=== PATIENT | female | born 1980 | race Caucasian/White ===

== ENCOUNTER 2016-06-14 13:32 | Emergency (ER) | payer MEDICAID ==
[~2016-06-14] VITALS: Ht 165.1 cm; Wt 68.0 kg
[~2016-06-14 13:32] MED LIST: DIP50I IM; DOCU-94 PO; KEP500T PO; LACT10SO PO; LEVE750T15 IV; LORA-205 PO; MAGN400S25 PO; METH1INJ12 IJ; METH40TA13 PO; PANT40T PO; PRED1PAK10 PO; PREG25CA PO
[2016-06-14 14:00] VITALS: BP 113/74
== END 2016-06-14 16:10 | disposition left against medical advice (07) ==
LOC: ER 13:33
DX: R11.2 Nausea with vomiting, unspecified (principal); Z53.21 Procedure and treatment not carried out due to patient leaving prior to being seen by health care provider

== ENCOUNTER 2017-10-12 14:24 | Inpatient (IN) | payer MEDICAID ==
[~2017-10-12] VITALS: Ht 162.6 cm; Wt 77.1 kg
[~2017-10-12 14:24] MED LIST changes: -LACT10SO PO; +LACT10SO3 PO
[2017-10-12 16:56] LABS: Basophils # (auto) 0 uL; Eosinophils # (auto) 0 uL; Hemoglobin 10.5 g/dL (12.2-16.2); Lymphocytes % (auto) 32.8 % (10.0-50.0); Monocytes # (auto) 0.6 uL; Red Cell Distribution Width 17.1 % (11.8-14.3)
[2017-10-12 16:59] LABS: Basophils % (auto) 0.5 % (0.0-2.0); Eosinophils % (auto) 0.2 % (0.0-7.0); Hematocrit 30.6 % (36.0-46.0); Mean Corpuscular Hemoglobin 31.8 pg (28.0-32.0); Mean Corpuscular Hgb Conc. 34.2 g/dL (32.0-36.0); Mean Corpuscular Volume 92.9 fL (80.0-100.0); Monocytes % (auto) 9.4 % (0.0-12.0); Neutrophils # (auto) 3.4 uL; Neutrophils % (auto) 57.1 % (37.0-80.0); Nucleated Red Blood Cells % 0.1 %; Platelet Count (auto) 470 10^3/uL (140-450)
[2017-10-12 17:21] LABS: Albumin 3.9 g/dL (3.4-5.0); Bilirubin, Total 0.3 mg/dL (0.2-1.0); Calcium 9.4 mg/dL (8.5-10.1); Magnesium 2.5 mg/dL (1.6-2.6); Potassium 4.2 mmol/L (3.5-5.1); Total Protein 7.6 g/dL (6.4-8.2)
[2017-10-12] MEDS ORDERED: SODIUM CHLORIDE 0.9% 1,000 ML IVB ONE (17:55)
[2017-10-12] MEDS ORDERED: MORPHINE SULF INJ 2 MG/ML SYRINGE 1ML IV ONE (18:00)
[2017-10-12] MEDS ORDERED: ONDANSETRON HCL 4 MG/2 ML VIAL IV ONE (18:00)
[2017-10-12 18:34] LABS: INR 0.92 (0.9-1.15); Partial Thromboplastin Time 20.7 sec (23.78-33.04); Prothrombin Time 9.9 sec (9.27-12.13)
[2017-10-12] MEDS ORDERED: LEVETIRACETAM 500 MG TAB PO ONE (21:00)
[2017-10-12] MEDS ORDERED: LORazepam 2MG/ML-1ML VIAL IV ONE (21:00)
[2017-10-12] MEDS ORDERED: ACETAMINOPHEN 325 MG TAB PO PRN (21:45)
[2017-10-12] MEDS ORDERED: diphenhdrAMINE HCL 25 MG CAP PO PRN (21:45)
[2017-10-12] MEDS: SODIUM CHLORIDE 0.9% 1,000 ML IV SCH (22:16)
[2017-10-12 23:00] VITALS: BP 106/68
[2017-10-12] MEDS: MORPHINE SULF INJ 2 MG/ML SYRINGE 1ML IV PRN (23:42)
[2017-10-12] MEDS: PREGABALIN 25 MG CAP PO SCH (23:42)
[2017-10-12] MEDS: TEMAZEPAM 15 MG CAP PO PRN (23:43)
[2017-10-13] MEDS: LEVETIRACETAM 500 MG TAB PO SCH ×3 (06:00→22:12)
[2017-10-13] MEDS ORDERED: CLINDAMYCIN 600MG IV 50 ML IV SCH (06:00)
[2017-10-13] MEDS ORDERED: PANTOPRAZOLE 40 MG TAB PO SCH (06:00)
[2017-10-13] MEDS: PREGABALIN 25 MG CAP PO SCH ×3 (06:00→22:12)
[2017-10-13] MEDS ORDERED: PREG100C PO (06:01)
[2017-10-13] MEDS ORDERED: BUSP30TA11 PO (06:02)
[2017-10-13] MEDS ORDERED: TEMA30CA5 PO (06:05)
[2017-10-13 06:48] LABS: Basophils # (auto) 0 uL; Basophils % (auto) 0.9 % (0.0-2.0); Eosinophils # (auto) 0.1 uL; Eosinophils % (auto) 1.9 % (0.0-7.0); Hematocrit 26.2 % (36.0-46.0); Hemoglobin 8.9 g/dL (12.2-16.2); Lymphocytes # (auto) 1.6 uL; Lymphocytes % (auto) 53.5 % (10.0-50.0); Mean Corpuscular Hemoglobin 32.1 pg (28.0-32.0); Mean Corpuscular Hgb Conc. 34.1 g/dL (32.0-36.0); Mean Corpuscular Volume 94.4 fL (80.0-100.0); Monocytes # (auto) 0.3 uL; Monocytes % (auto) 10.2 % (0.0-12.0); Neutrophils % (auto) 33.5 % (37.0-80.0); Nucleated Red Blood Cells % 0.2 %; Platelet Count (auto) 374 10^3/uL (140-450); Red Blood Cells 2.78 10^6/uL (4.0-5.20); Red Cell Distribution Width 17.3 % (11.8-14.3); White Blood Cell 3.1 10^3/uL (4.4-10.8)
[2017-10-13 07:25] LABS: Albumin 3.1 g/dL (3.4-5.0); BUN/Creatinine Ratio 13.8; Bilirubin, Total 0.2 mg/dL (0.2-1.0); Calcium 7.9 mg/dL (8.5-10.1); Potassium 4.5 mmol/L (3.5-5.1); Total Protein 6.2 g/dL (6.4-8.2)
[2017-10-13] MEDS: MORPHINE SULF INJ 2 MG/ML SYRINGE 1ML IV PRN (07:56)
[2017-10-13] MEDS: HYDROcodone-ACET 5/325MG TAB PO PRN ×2 (07:57→11:42)
[2017-10-13] MEDS: HYDROcodone-ACET 10/325MG TAB PO PRN ×4 (08:00→22:13)
[2017-10-13] MEDS ORDERED: MORPHINE SULF INJ 2 MG/ML SYRINGE 1ML IV PRN (08:15)
[2017-10-13 08:19] VITALS: BP 100/58
[2017-10-13] MEDS: LORazepam 0.5 MG TAB PO PRN ×2 (08:56→22:13)
[2017-10-13] MEDS: METHADONE HCL 10 MG TAB PO SCH (09:53)
[2017-10-13] MEDS: predniSONE 5 MG TAB PO SCH (09:53)
[2017-10-13] MEDS ORDERED: diphenhdrAMINE HCL 50 MG/1 ML VL IV ONE (12:45)
[2017-10-13 13:00] VITALS: BP 106/80
[2017-10-13] MEDS ORDERED: HALOPERIDOL LACTATE 5 MG/ML INJ VIAL IM ONE (13:00)
[2017-10-13] MEDS ORDERED: HALOPERIDOL LACTATE 5 MG/ML INJ VIAL IM PRN (13:00)
[2017-10-13] MEDS: LACTULOSE 20Gm/30ML SOLN PO SCH ×3 (14:00→22:12)
[2017-10-13 16:54] VITALS: BP 100/69
[2017-10-13 22:00] VITALS: BP 118/72
[2017-10-13] MEDS ORDERED: METHADONE HCL 10 MG TAB PO ONE (22:00)
[2017-10-13] MEDS: SODIUM CHLORIDE 0.9% 1,000 ML IV SCH (22:11)
[2017-10-13] MEDS: PANTOPRAZOLE 40 MG/10 ML VIAL IV SCH (22:12)
[2017-10-14] MEDS: SODIUM CHLORIDE 0.9% 1,000 ML IV SCH (00:25)
[2017-10-14] MEDS: LACTULOSE 20Gm/30ML SOLN PO SCH ×6 (03:28→22:06)
[2017-10-14] MEDS: TEMAZEPAM 15 MG CAP PO PRN (03:29)
[2017-10-14 05:00] VITALS: BP 101/59
[2017-10-14] MEDS: LEVETIRACETAM 500 MG TAB PO SCH ×3 (06:41→22:07)
[2017-10-14] MEDS: PREGABALIN 25 MG CAP PO SCH ×3 (06:42→22:07)
[2017-10-14] MEDS: LORazepam 0.5 MG TAB PO PRN (09:11)
[2017-10-14] MEDS: HYDROcodone-ACET 10/325MG TAB PO PRN ×2 (09:12→20:08)
[2017-10-14] MEDS: predniSONE 5 MG TAB PO SCH (10:00)
[2017-10-14] MEDS ORDERED: PANT40TA2 PO (10:04)
[2017-10-14] MEDS ORDERED: LORazepam 2MG/ML-1ML VIAL IV ONE (10:15)
[2017-10-14] MEDS: PANTOPRAZOLE 40 MG/10 ML VIAL IV SCH ×2 (11:12→22:06)
[2017-10-14] MEDS: METHADONE HCL 10 MG TAB PO SCH (11:13)
[2017-10-14] MEDS: LORazepam 2MG/ML-1ML VIAL IV PRN (19:54)
[2017-10-14] MEDS: OLANZapine 5 MG TAB PO SCH (22:07)
[2017-10-15] MEDS: TEMAZEPAM 15 MG CAP PO PRN ×2 (01:36→23:20)
[2017-10-15] MEDS: LACTULOSE 20Gm/30ML SOLN PO SCH ×7 (01:45→21:19)
[2017-10-15] MEDS: HYDROcodone-ACET 10/325MG TAB PO PRN ×4 (01:45→20:21)
[2017-10-15] MEDS: LORazepam 2MG/ML-1ML VIAL IV PRN ×4 (02:12→21:20)
[2017-10-15] MEDS: PREGABALIN 25 MG CAP PO SCH ×4 (06:00→21:19)
[2017-10-15] MEDS: LEVETIRACETAM 500 MG TAB PO SCH ×4 (06:00→21:19)
[2017-10-15 09:00] VITALS: BP 109/64
[2017-10-15] MEDS: PANTOPRAZOLE 40 MG/10 ML VIAL IV SCH ×2 (09:16→21:19)
[2017-10-15] MEDS: METHADONE HCL 10 MG TAB PO SCH (09:24)
[2017-10-15] MEDS: OLANZapine 5 MG TAB PO SCH ×2 (09:25→21:20)
[2017-10-15] MEDS: predniSONE 5 MG TAB PO SCH (09:35)
[2017-10-15 13:00] VITALS: BP 98/60
[2017-10-15] MEDS: diphenhdrAMINE HCL 50 MG/1 ML VL IV PRN ×2 (15:11→23:20)
[2017-10-16] MEDS: LACTULOSE 20Gm/30ML SOLN PO SCH ×7 (03:11→22:16)
[2017-10-16] MEDS: HYDROcodone-ACET 10/325MG TAB PO PRN ×4 (04:36→22:15)
[2017-10-16] MEDS: LORazepam 2MG/ML-1ML VIAL IV PRN ×3 (04:37→18:24)
[2017-10-16 05:00] VITALS: BP 115/70
[2017-10-16] MEDS: PREGABALIN 25 MG CAP PO SCH ×4 (05:48→22:16)
[2017-10-16] MEDS: LEVETIRACETAM 500 MG TAB PO SCH ×4 (05:48→22:16)
[2017-10-16] MEDS: predniSONE 5 MG TAB PO SCH (10:20)
[2017-10-16] MEDS: PANTOPRAZOLE 40 MG/10 ML VIAL IV SCH ×2 (10:20→22:16)
[2017-10-16] MEDS: METHADONE HCL 10 MG TAB PO SCH (10:20)
[2017-10-16] MEDS: OLANZapine 5 MG TAB PO SCH ×2 (10:21→22:16)
[2017-10-16] MEDS: diphenhdrAMINE HCL 50 MG/1 ML VL IV PRN ×2 (10:22→18:24)
[2017-10-16] MEDS: Ensure Enlive Chocolate 8oz Bottle PO SCH (18:23)
[2017-10-16 21:30] VITALS: BP 117/62
[2017-10-16] MEDS: TEMAZEPAM 15 MG CAP PO PRN (22:14)
[2017-10-17] MEDS: LACTULOSE 20Gm/30ML SOLN PO SCH ×6 (01:51→21:29)
[2017-10-17] MEDS: LORazepam 2MG/ML-1ML VIAL IV PRN ×3 (02:02→18:11)
[2017-10-17] MEDS: diphenhdrAMINE HCL 50 MG/1 ML VL IV PRN ×3 (02:02→18:11)
[2017-10-17] MEDS: HYDROcodone-ACET 10/325MG TAB PO PRN ×6 (04:25→20:07)
[2017-10-17] MEDS: PREGABALIN 25 MG CAP PO SCH ×3 (05:49→21:29)
[2017-10-17] MEDS: LEVETIRACETAM 500 MG TAB PO SCH ×3 (05:50→21:30)
[2017-10-17 08:11] VITALS: BP 121/73
[2017-10-17] MEDS: Ensure Enlive Chocolate 8oz Bottle PO SCH ×2 (08:29→17:58)
[2017-10-17] MEDS: PANTOPRAZOLE 40 MG/10 ML VIAL IV SCH ×2 (10:02→21:29)
[2017-10-17] MEDS: METHADONE HCL 10 MG TAB PO SCH (10:02)
[2017-10-17] MEDS: predniSONE 5 MG TAB PO SCH (10:02)
[2017-10-17] MEDS: OLANZapine 5 MG TAB PO SCH ×2 (10:02→21:30)
[2017-10-17 12:52] VITALS: BP 104/71
[2017-10-17 17:07] VITALS: BP 109/72
[2017-10-17] MEDS: TEMAZEPAM 15 MG CAP PO PRN (21:31)
[2017-10-18] MEDS: LACTULOSE 20Gm/30ML SOLN PO SCH ×6 (02:16→21:13)
[2017-10-18] MEDS: diphenhdrAMINE HCL 50 MG/1 ML VL IV PRN ×3 (02:16→18:11)
[2017-10-18] MEDS: LORazepam 2MG/ML-1ML VIAL IV PRN ×3 (02:17→18:11)
[2017-10-18] MEDS: HYDROcodone-ACET 10/325MG TAB PO PRN ×5 (03:53→23:04)
[2017-10-18] MEDS: PREGABALIN 25 MG CAP PO SCH ×3 (06:06→21:12)
[2017-10-18] MEDS: LEVETIRACETAM 500 MG TAB PO SCH ×3 (06:06→21:13)
[2017-10-18] MEDS: Ensure Enlive Chocolate 8oz Bottle PO SCH ×2 (08:10→18:16)
[2017-10-18 09:00] VITALS: BP 122/80
[2017-10-18] MEDS: predniSONE 5 MG TAB PO SCH (10:31)
[2017-10-18] MEDS: METHADONE HCL 10 MG TAB PO SCH (10:31)
[2017-10-18] MEDS: OLANZapine 5 MG TAB PO SCH ×2 (10:32→21:24)
[2017-10-18] MEDS: PANTOPRAZOLE 40 MG/10 ML VIAL IV SCH ×2 (10:32→21:13)
[2017-10-18 13:00] VITALS: BP 128/84
[2017-10-18 17:32] VITALS: BP 118/76
[2017-10-18] MEDS: ONDANSETRON HCL 4 MG/2 ML VIAL IV PRN (23:05)
[2017-10-19] MEDS: LACTULOSE 20Gm/30ML SOLN PO SCH ×6 (03:05→21:41)
[2017-10-19 04:35] VITALS: BP 135/74
[2017-10-19] MEDS: HYDROcodone-ACET 10/325MG TAB PO PRN ×5 (04:39→21:40)
[2017-10-19] MEDS: TEMAZEPAM 15 MG CAP PO PRN ×2 (04:42→23:52)
[2017-10-19] MEDS: diphenhdrAMINE HCL 50 MG/1 ML VL IV PRN ×3 (04:43→20:14)
[2017-10-19] MEDS: LORazepam 2MG/ML-1ML VIAL IV PRN ×3 (04:43→20:14)
[2017-10-19] MEDS: PREGABALIN 25 MG CAP PO SCH ×3 (06:50→21:40)
[2017-10-19] MEDS: LEVETIRACETAM 500 MG TAB PO SCH ×3 (06:51→21:40)
[2017-10-19 07:02] VITALS: BP 126/76
[2017-10-19 08:16] VITALS: BP 126/76
[2017-10-19] MEDS: Ensure Enlive Chocolate 8oz Bottle PO SCH ×2 (08:54→18:07)
[2017-10-19] MEDS ORDERED: FUROSEMIDE 20 MG TAB PO ONE (09:45)
[2017-10-19] MEDS: METHADONE HCL 10 MG TAB PO SCH (10:11)
[2017-10-19] MEDS: POTASSIUM CHL 10 Meq TABLET PO SCH (10:11)
[2017-10-19] MEDS: OLANZapine 5 MG TAB PO SCH ×2 (10:13→21:41)
[2017-10-19] MEDS: PANTOPRAZOLE 40 MG/10 ML VIAL IV SCH ×2 (10:13→21:41)
[2017-10-19] MEDS: predniSONE 5 MG TAB PO SCH (10:13)
[2017-10-19 11:25] VITALS: BP 157/88
[2017-10-19 17:00] VITALS: BP 143/102
[2017-10-19 21:30] VITALS: BP 130/94
[2017-10-20] MEDS: LACTULOSE 20Gm/30ML SOLN PO SCH ×6 (02:17→22:42)
[2017-10-20] MEDS: LORazepam 2MG/ML-1ML VIAL IV PRN ×4 (03:44→22:44)
[2017-10-20] MEDS: diphenhdrAMINE HCL 50 MG/1 ML VL IV PRN ×3 (03:44→16:25)
[2017-10-20 04:41] VITALS: BP 130/69
[2017-10-20] MEDS: PREGABALIN 25 MG CAP PO SCH ×3 (06:06→22:43)
[2017-10-20] MEDS: HYDROcodone-ACET 10/325MG TAB PO PRN ×3 (06:06→21:40)
[2017-10-20] MEDS: LEVETIRACETAM 500 MG TAB PO SCH ×3 (06:06→22:43)
[2017-10-20 08:00] VITALS: BP 151/79
[2017-10-20 08:51] VITALS: BP 151/79
[2017-10-20] MEDS: predniSONE 5 MG TAB PO SCH (10:09)
[2017-10-20] MEDS: POTASSIUM CHL 10 Meq TABLET PO SCH (10:09)
[2017-10-20] MEDS: METHADONE HCL 10 MG TAB PO SCH (10:09)
[2017-10-20] MEDS: OLANZapine 5 MG TAB PO SCH ×2 (10:10→22:43)
[2017-10-20] MEDS: PANTOPRAZOLE 40 MG/10 ML VIAL IV SCH ×2 (10:10→22:42)
[2017-10-20] MEDS: Ensure Enlive Chocolate 8oz Bottle PO SCH ×2 (10:16→18:44)
[2017-10-20] MEDS ORDERED: FUROSEMIDE 40 MG/4 ML VIAL IV ONE (12:30)
[2017-10-20 22:00] VITALS: BP 138/66
[2017-10-21] MEDS: TEMAZEPAM 15 MG CAP PO PRN ×2 (01:07→22:09)
[2017-10-21] MEDS: diphenhdrAMINE HCL 50 MG/1 ML VL IV PRN ×3 (01:08→18:13)
[2017-10-21] MEDS: LACTULOSE 20Gm/30ML SOLN PO SCH ×6 (02:00→22:08)
[2017-10-21] MEDS: HYDROcodone-ACET 10/325MG TAB PO PRN ×4 (02:22→19:39)
[2017-10-21 05:26] VITALS: BP 134/80
[2017-10-21] MEDS: PREGABALIN 25 MG CAP PO SCH ×3 (06:00→22:09)
[2017-10-21 06:43] LABS: BUN/Creatinine Ratio 18.6; Calcium 8.4 mg/dL (8.5-10.1); Potassium 4.2 mmol/L (3.5-5.1)
[2017-10-21 06:55] LABS: INR 0.89 (0.9-1.15); Partial Thromboplastin Time 23.8 sec (23.78-33.04); Prothrombin Time 9.6 sec (9.27-12.13)
[2017-10-21] MEDS: LEVETIRACETAM 500 MG TAB PO SCH ×3 (07:00→22:09)
[2017-10-21 07:01] LABS: Basophils # (auto) 0 uL; Basophils % (auto) 0.6 % (0.0-2.0); Eosinophils # (auto) 0.1 uL; Eosinophils % (auto) 2.2 % (0.0-7.0); Hematocrit 24.1 % (36.0-46.0); Hemoglobin 8.5 g/dL (12.2-16.2); Lymphocytes # (auto) 2.1 uL; Lymphocytes % (auto) 35.2 % (10.0-50.0); Mean Corpuscular Hemoglobin 33.8 pg (28.0-32.0); Mean Corpuscular Hgb Conc. 35.1 g/dL (32.0-36.0); Mean Corpuscular Volume 96.3 fL (80.0-100.0); Monocytes # (auto) 0.8 uL; Monocytes % (auto) 13.6 % (0.0-12.0); Neutrophils # (auto) 2.9 uL; Neutrophils % (auto) 48.4 % (37.0-80.0); Nucleated Red Blood Cells % 0.2 %; Platelet Count (auto) 277 10^3/uL (140-450); Red Blood Cells 2.51 10^6/uL (4.0-5.20); Red Cell Distribution Width 17.1 % (11.8-14.3); White Blood Cell 5.9 10^3/uL (4.4-10.8)
[2017-10-21] MEDS: Ensure Enlive Chocolate 8oz Bottle PO SCH ×2 (08:00→18:12)
[2017-10-21 08:55] VITALS: BP 133/85
[2017-10-21] MEDS: PANTOPRAZOLE 40 MG/10 ML VIAL IV SCH ×2 (09:46→22:08)
[2017-10-21] MEDS: METHADONE HCL 10 MG TAB PO SCH (09:46)
[2017-10-21] MEDS: predniSONE 5 MG TAB PO SCH (09:46)
[2017-10-21] MEDS: POTASSIUM CHL 10 Meq TABLET PO SCH (09:46)
[2017-10-21] MEDS: LORazepam 2MG/ML-1ML VIAL IV PRN ×2 (09:47→18:13)
[2017-10-21] MEDS: OLANZapine 5 MG TAB PO SCH ×2 (09:47→22:10)
[2017-10-21] MEDS ORDERED: MIDAZOLAM HCL 1MG/1ML-2 ML VIAL ONE (11:59)
[2017-10-21] MEDS ORDERED: PROPOFOL 10 MG/ML 20 ML IV ONE (12:00)
[2017-10-21] MEDS ORDERED: fentaNYL CITRATE 100 MCG/2 ML VL ONE (12:02)
[2017-10-21] MEDS ORDERED: NALOXONE HCL 0.4 MG/ML VIAL IV PRN (12:30)
[2017-10-21 13:20] VITALS: BP 120/90
[2017-10-21 16:52] VITALS: BP 136/91
[2017-10-21] MEDS ORDERED: MILK OF MAGNESIA 30ML SUSP PO ONE (21:15)
[2017-10-22] MEDS: LACTULOSE 20Gm/30ML SOLN PO SCH ×6 (02:29→21:56)
[2017-10-22] MEDS: diphenhdrAMINE HCL 50 MG/1 ML VL IV PRN ×3 (02:30→20:27)
[2017-10-22] MEDS: LORazepam 2MG/ML-1ML VIAL IV PRN ×3 (02:30→20:27)
[2017-10-22] MEDS: LEVETIRACETAM 500 MG TAB PO SCH ×3 (06:05→21:59)
[2017-10-22] MEDS: PREGABALIN 25 MG CAP PO SCH ×3 (06:05→21:57)
[2017-10-22] MEDS: HYDROcodone-ACET 10/325MG TAB PO PRN ×4 (06:10→23:22)
[2017-10-22] MEDS ORDERED: HYDROcodone-ACET 10/325MG TAB PO PRN (07:00)
[2017-10-22] MEDS ORDERED: LORazepam 2MG/ML-1ML VIAL IV PRN (07:00)
[2017-10-22] MEDS: Ensure Enlive Chocolate 8oz Bottle PO SCH ×2 (08:15→18:39)
[2017-10-22 08:43] LABS: BUN/Creatinine Ratio 17.2; Calcium 8.6 mg/dL (8.5-10.1); Potassium 4.4 mmol/L (3.5-5.1)
[2017-10-22] MEDS: predniSONE 5 MG TAB PO SCH (09:42)
[2017-10-22] MEDS: POTASSIUM CHL 10 Meq TABLET PO SCH (09:42)
[2017-10-22] MEDS: PANTOPRAZOLE 40 MG/10 ML VIAL IV SCH ×2 (09:42→22:00)
[2017-10-22] MEDS: OLANZapine 5 MG TAB PO SCH ×2 (09:43→21:58)
[2017-10-22] MEDS: METHADONE HCL 10 MG TAB PO SCH (09:43)
[2017-10-22] MEDS ORDERED: METHADONE HCL 10 MG TAB PO SCH (10:00)
[2017-10-22] MEDS ORDERED: fentaNYL CITRATE 100 MCG/2 ML VL IV ONE (10:00)
[2017-10-22 13:46] VITALS: BP 135/95
[2017-10-22] MEDS ORDERED: PREGABALIN 25 MG CAP PO SCH (14:00)
[2017-10-22 21:48] VITALS: BP 145/93
[2017-10-22] MEDS: TEMAZEPAM 15 MG CAP PO PRN (22:26)
[2017-10-23] MEDS: LACTULOSE 20Gm/30ML SOLN PO SCH ×6 (02:30→21:16)
[2017-10-23] MEDS: diphenhdrAMINE HCL 50 MG/1 ML VL IV PRN ×3 (04:31→20:02)
[2017-10-23] MEDS: LORazepam 2MG/ML-1ML VIAL IV PRN ×3 (04:31→20:01)
[2017-10-23] MEDS: HYDROcodone-ACET 10/325MG TAB PO PRN ×4 (04:40→21:16)
[2017-10-23 06:02] LABS: Basophils # (auto) 0 uL; Eosinophils # (auto) 0.1 uL; Hemoglobin 8.4 g/dL (12.2-16.2); Monocytes # (auto) 0.8 uL; Neutrophils # (auto) 4.8 uL; Neutrophils % (auto) 63.4 % (37.0-80.0); Nucleated Red Blood Cells % 0.1 %; White Blood Cell 7.6 10^3/uL (4.4-10.8)
[2017-10-23 06:05] LABS: Basophils % (auto) 0.3 % (0.0-2.0); Eosinophils % (auto) 1.4 % (0.0-7.0); Hematocrit 24.6 % (36.0-46.0); Lymphocytes # (auto) 1.9 uL; Mean Corpuscular Hemoglobin 32.9 pg (28.0-32.0); Mean Corpuscular Hgb Conc. 34.3 g/dL (32.0-36.0); Mean Corpuscular Volume 95.9 fL (80.0-100.0); Monocytes % (auto) 9.9 % (0.0-12.0); Platelet Count (auto) 249 10^3/uL (140-450); Red Blood Cells 2.56 10^6/uL (4.0-5.20); Red Cell Distribution Width 16.6 % (11.8-14.3)
[2017-10-23] MEDS: PREGABALIN 25 MG CAP PO SCH ×3 (06:22→21:14)
[2017-10-23] MEDS: LEVETIRACETAM 500 MG TAB PO SCH ×3 (06:22→21:16)
[2017-10-23 06:41] LABS: Albumin 3.2 g/dL (3.4-5.0); BUN/Creatinine Ratio 21.6; Bilirubin, Total 0.2 mg/dL (0.2-1.0); Calcium 8.1 mg/dL (8.5-10.1); Potassium 4.1 mmol/L (3.5-5.1)
[2017-10-23] MEDS: Ensure Enlive Chocolate 8oz Bottle PO SCH ×2 (08:00→18:00)
[2017-10-23] MEDS ORDERED: MILK OF MAGNESIA 30ML SUSP PO ONE (11:00)
[2017-10-23] MEDS: POTASSIUM CHL 10 Meq TABLET PO SCH (12:00)
[2017-10-23] MEDS: predniSONE 5 MG TAB PO SCH (12:00)
[2017-10-23] MEDS: METHADONE HCL 10 MG TAB PO SCH (12:00)
[2017-10-23] MEDS: PANTOPRAZOLE 40 MG/10 ML VIAL IV SCH ×2 (12:00→21:17)
[2017-10-23] MEDS: OLANZapine 5 MG TAB PO SCH ×2 (12:04→21:15)
[2017-10-23] MEDS ORDERED: ALPR0.254 PO (15:08)
[2017-10-23] MEDS: TEMAZEPAM 15 MG CAP PO PRN (21:36)
[2017-10-23] MEDS: ONDANSETRON HCL 4 MG/2 ML VIAL IV PRN (23:24)
[2017-10-24] MEDS: LACTULOSE 20Gm/30ML SOLN PO SCH ×7 (01:52→20:42)
[2017-10-24] MEDS: HYDROcodone-ACET 10/325MG TAB PO PRN ×4 (04:03→20:35)
[2017-10-24] MEDS: LORazepam 2MG/ML-1ML VIAL IV PRN ×3 (04:03→20:49)
[2017-10-24] MEDS: diphenhdrAMINE HCL 50 MG/1 ML VL IV PRN ×3 (04:03→20:49)
[2017-10-24 04:43] LABS: Basophils # (auto) 0 uL; Basophils % (auto) 0.4 % (0.0-2.0); Eosinophils # (auto) 0.1 uL; Eosinophils % (auto) 2.1 % (0.0-7.0); Hematocrit 25.1 % (36.0-46.0); Hemoglobin 8.7 g/dL (12.2-16.2); Lymphocytes % (auto) 29.4 % (10.0-50.0); Mean Corpuscular Hemoglobin 33.4 pg (28.0-32.0); Mean Corpuscular Hgb Conc. 34.6 g/dL (32.0-36.0); Mean Corpuscular Volume 96.5 fL (80.0-100.0); Monocytes # (auto) 0.9 uL; Monocytes % (auto) 12.9 % (0.0-12.0); Neutrophils # (auto) 3.8 uL; Neutrophils % (auto) 55.2 % (37.0-80.0); Nucleated Red Blood Cells % 0.1 %; Platelet Count (auto) 272 10^3/uL (140-450); Red Cell Distribution Width 16.5 % (11.8-14.3); White Blood Cell 6.9 10^3/uL (4.4-10.8)
[2017-10-24 04:53] LABS: BUN/Creatinine Ratio 19.4; Calcium 8.1 mg/dL (8.5-10.1)
[2017-10-24] MEDS: PREGABALIN 25 MG CAP PO SCH ×4 (06:52→20:42)
[2017-10-24] MEDS: LEVETIRACETAM 500 MG TAB PO SCH ×4 (06:54→20:42)
[2017-10-24] MEDS: Ensure Enlive Chocolate 8oz Bottle PO SCH ×2 (08:44→19:15)
[2017-10-24] MEDS: predniSONE 5 MG TAB PO SCH (10:07)
[2017-10-24] MEDS: METHADONE HCL 10 MG TAB PO SCH (10:07)
[2017-10-24] MEDS: PANTOPRAZOLE 40 MG/10 ML VIAL IV SCH ×2 (10:07→20:50)
[2017-10-24] MEDS: POTASSIUM CHL 10 Meq TABLET PO SCH (10:07)
[2017-10-24] MEDS: OLANZapine 5 MG TAB PO SCH ×2 (10:08→20:35)
[2017-10-24] MEDS: ONDANSETRON HCL 4 MG/2 ML VIAL IV PRN (18:38)
[2017-10-24] MEDS: TEMAZEPAM 15 MG CAP PO PRN (20:35)
[2017-10-24 22:00] VITALS: BP 149/90
[2017-10-25] MEDS: HYDROcodone-ACET 10/325MG TAB PO PRN ×5 (01:23→22:00)
[2017-10-25] MEDS: LACTULOSE 20Gm/30ML SOLN PO SCH ×6 (01:23→21:58)
[2017-10-25] MEDS: LORazepam 2MG/ML-1ML VIAL IV PRN ×3 (04:46→22:19)
[2017-10-25] MEDS: diphenhdrAMINE HCL 50 MG/1 ML VL IV PRN ×3 (04:47→22:19)
[2017-10-25] MEDS: PREGABALIN 25 MG CAP PO SCH ×3 (05:22→21:58)
[2017-10-25] MEDS: LEVETIRACETAM 500 MG TAB PO SCH ×3 (05:23→22:00)
[2017-10-25 06:04] LABS: BUN/Creatinine Ratio 18.2; Potassium 4.4 mmol/L (3.5-5.1)
[2017-10-25 06:05] LABS: Basophils # (auto) 0 uL; Basophils % (auto) 0.4 % (0.0-2.0); Lymphocytes # (auto) 2.1 uL; Monocytes # (auto) 0.7 uL
[2017-10-25 06:08] LABS: Eosinophils # (auto) 0.1 uL; Eosinophils % (auto) 2.4 % (0.0-7.0); Hematocrit 23.6 % (36.0-46.0); Lymphocytes % (auto) 39.9 % (10.0-50.0); Mean Corpuscular Hemoglobin 32.7 pg (28.0-32.0); Mean Corpuscular Hgb Conc. 34.1 g/dL (32.0-36.0); Mean Corpuscular Volume 95.9 fL (80.0-100.0); Monocytes % (auto) 13.3 % (0.0-12.0); Neutrophils # (auto) 2.3 uL; Nucleated Red Blood Cells % 0.1 %; Platelet Count (auto) 274 10^3/uL (140-450); Red Blood Cells 2.46 10^6/uL (4.0-5.20); Red Cell Distribution Width 16.8 % (11.8-14.3); White Blood Cell 5.2 10^3/uL (4.4-10.8)
[2017-10-25] MEDS: Ensure Enlive Chocolate 8oz Bottle PO SCH ×2 (08:00→17:08)
[2017-10-25] MEDS: METHADONE HCL 10 MG TAB PO SCH (10:26)
[2017-10-25] MEDS: PANTOPRAZOLE 40 MG/10 ML VIAL IV SCH ×2 (11:26→22:01)
[2017-10-25] MEDS: OLANZapine 5 MG TAB PO SCH ×2 (11:26→22:01)
[2017-10-25] MEDS: predniSONE 5 MG TAB PO SCH (11:26)
[2017-10-25] MEDS: POTASSIUM CHL 10 Meq TABLET PO SCH (11:27)
[2017-10-25] MEDS: SODIUM CHLORIDE 1 GM TAB PO SCH (11:27)
[2017-10-25 21:59] VITALS: BP 133/80
[2017-10-26] MEDS: SODIUM CHLORIDE 1 GM TAB PO SCH ×3 (00:22→21:02)
[2017-10-26] MEDS: TEMAZEPAM 15 MG CAP PO PRN (00:22)
[2017-10-26] MEDS: LACTULOSE 20Gm/30ML SOLN PO SCH ×6 (02:43→21:03)
[2017-10-26] MEDS: HYDROcodone-ACET 10/325MG TAB PO PRN ×4 (04:14→21:00)
[2017-10-26] MEDS: LEVETIRACETAM 500 MG TAB PO SCH ×3 (06:05→21:01)
[2017-10-26] MEDS: LORazepam 2MG/ML-1ML VIAL IV PRN ×3 (06:06→22:11)
[2017-10-26] MEDS: PREGABALIN 25 MG CAP PO SCH ×3 (06:06→21:02)
[2017-10-26] MEDS: diphenhdrAMINE HCL 50 MG/1 ML VL IV PRN ×3 (06:06→22:11)
[2017-10-26 06:49] LABS: Basophils # (auto) 0 uL; Basophils % (auto) 0.3 % (0.0-2.0); Eosinophils # (auto) 0.1 uL; Eosinophils % (auto) 2.1 % (0.0-7.0); Hematocrit 24.4 % (36.0-46.0); Hemoglobin 8.3 g/dL (12.2-16.2); Lymphocytes % (auto) 31.7 % (10.0-50.0); Mean Corpuscular Hemoglobin 33.2 pg (28.0-32.0); Mean Corpuscular Hgb Conc. 34.2 g/dL (32.0-36.0); Mean Corpuscular Volume 97.1 fL (80.0-100.0); Monocytes # (auto) 0.6 uL; Monocytes % (auto) 9.3 % (0.0-12.0); Neutrophils # (auto) 3.6 uL; Neutrophils % (auto) 56.6 % (37.0-80.0); Nucleated Red Blood Cells % 0.1 %; Platelet Count (auto) 308 10^3/uL (140-450); Red Blood Cells 2.52 10^6/uL (4.0-5.20); Red Cell Distribution Width 16.7 % (11.8-14.3); White Blood Cell 6.4 10^3/uL (4.4-10.8)
[2017-10-26 07:14] LABS: BUN/Creatinine Ratio 13.3; Calcium 8.1 mg/dL (8.5-10.1); Potassium 3.9 mmol/L (3.5-5.1)
[2017-10-26] MEDS: Ensure Enlive Chocolate 8oz Bottle PO SCH ×2 (08:00→18:00)
[2017-10-26] MEDS: OLANZapine 5 MG TAB PO SCH ×2 (10:00→21:02)
[2017-10-26] MEDS: PANTOPRAZOLE 40 MG/10 ML VIAL IV SCH ×2 (10:00→22:11)
[2017-10-26] MEDS: predniSONE 5 MG TAB PO SCH (10:00)
[2017-10-26] MEDS: POTASSIUM CHL 10 Meq TABLET PO SCH (10:00)
[2017-10-26] MEDS: METHADONE HCL 10 MG TAB PO SCH (10:00)
[2017-10-26] MEDS: ONDANSETRON HCL 4 MG/2 ML VIAL IV PRN (16:31)
[2017-10-27] MEDS: TEMAZEPAM 15 MG CAP PO PRN (00:21)
[2017-10-27] MEDS: HYDROcodone-ACET 10/325MG TAB PO PRN ×6 (00:21→22:52)
[2017-10-27] MEDS: LACTULOSE 20Gm/30ML SOLN PO SCH ×6 (01:09→21:49)
[2017-10-27] MEDS: PREGABALIN 25 MG CAP PO SCH ×3 (06:29→21:50)
[2017-10-27] MEDS: LORazepam 2MG/ML-1ML VIAL IV PRN ×3 (06:29→21:50)
[2017-10-27] MEDS: LEVETIRACETAM 500 MG TAB PO SCH ×3 (06:29→21:50)
[2017-10-27] MEDS: diphenhdrAMINE HCL 50 MG/1 ML VL IV PRN ×3 (06:29→21:50)
[2017-10-27] MEDS: Ensure Enlive Chocolate 8oz Bottle PO SCH ×2 (08:00→18:00)
[2017-10-27 08:09] LABS: Basophils # (auto) 0 uL; Basophils % (auto) 0.7 % (0.0-2.0); Eosinophils # (auto) 0.2 uL; Eosinophils % (auto) 3.1 % (0.0-7.0); Hematocrit 25.5 % (36.0-46.0); Hemoglobin 8.5 g/dL (12.2-16.2); Lymphocytes # (auto) 2.5 uL; Mean Corpuscular Hemoglobin 32.4 pg (28.0-32.0); Mean Corpuscular Hgb Conc. 33.5 g/dL (32.0-36.0); Mean Corpuscular Volume 96.8 fL (80.0-100.0); Monocytes # (auto) 0.6 uL; Neutrophils # (auto) 2.3 uL; Neutrophils % (auto) 41.2 % (37.0-80.0); Nucleated Red Blood Cells % 0.1 %; Platelet Count (auto) 332 10^3/uL (140-450); Red Blood Cells 2.63 10^6/uL (4.0-5.20); Red Cell Distribution Width 16.6 % (11.8-14.3); White Blood Cell 5.6 10^3/uL (4.4-10.8)
[2017-10-27 08:25] LABS: BUN/Creatinine Ratio 17.2
[2017-10-27] MEDS: predniSONE 5 MG TAB PO SCH (10:00)
[2017-10-27] MEDS: METHADONE HCL 10 MG TAB PO SCH (10:00)
[2017-10-27] MEDS: OLANZapine 5 MG TAB PO SCH ×2 (10:00→21:49)
[2017-10-27] MEDS: SODIUM CHLORIDE 1 GM TAB PO SCH ×2 (10:00→21:49)
[2017-10-27] MEDS: POTASSIUM CHL 10 Meq TABLET PO SCH (10:00)
[2017-10-27] MEDS: PANTOPRAZOLE 40 MG/10 ML VIAL IV SCH ×2 (10:00→21:49)
[2017-10-27 17:00] VITALS: BP 143/87
[2017-10-28] MEDS: TEMAZEPAM 15 MG CAP PO PRN ×2 (00:41→23:28)
[2017-10-28] MEDS: LACTULOSE 20Gm/30ML SOLN PO SCH ×6 (01:17→21:26)
[2017-10-28] MEDS: HYDROcodone-ACET 10/325MG TAB PO PRN ×6 (03:00→23:28)
[2017-10-28] MEDS: PREGABALIN 25 MG CAP PO SCH ×3 (05:39→21:27)
[2017-10-28] MEDS: LEVETIRACETAM 500 MG TAB PO SCH ×3 (05:39→21:27)
[2017-10-28] MEDS: diphenhdrAMINE HCL 50 MG/1 ML VL IV PRN ×3 (05:40→21:27)
[2017-10-28] MEDS: LORazepam 2MG/ML-1ML VIAL IV PRN ×3 (05:40→21:27)
[2017-10-28 07:34] VITALS: BP 135/101
[2017-10-28] MEDS: Ensure Enlive Chocolate 8oz Bottle PO SCH ×2 (08:00→18:00)
[2017-10-28] MEDS: OLANZapine 5 MG TAB PO SCH ×2 (10:00→21:26)
[2017-10-28] MEDS: POTASSIUM CHL 10 Meq TABLET PO SCH (10:00)
[2017-10-28] MEDS: SODIUM CHLORIDE 1 GM TAB PO SCH ×2 (10:00→21:26)
[2017-10-28] MEDS: PANTOPRAZOLE 40 MG/10 ML VIAL IV SCH ×2 (10:00→21:26)
[2017-10-28] MEDS: METHADONE HCL 10 MG TAB PO SCH (10:00)
[2017-10-28] MEDS: predniSONE 5 MG TAB PO SCH (10:00)
[2017-10-28 12:56] VITALS: BP 136/92
[2017-10-28 17:00] VITALS: BP 132/90
[2017-10-28 21:40] LABS: Urine WBC None Seen /hpf (0 - 5)
[2017-10-28 21:51] LABS: Urine Bacteria NONE SEEN /hpf (None Seen); Urine Blood Negative /uL (Negative); Urine Specific Gravity 1.001 (1.001-1.035)
[2017-10-28 22:09] LABS: Protein, Urine < 5.0 mg/dL (0.0-11.9); Sodium Urine 27 mmol/L (40-220)
[2017-10-28 23:52] LABS: Creatinine, Urine < 0.1 mg/dL (30.0-125.0)
[2017-10-29] MEDS: LACTULOSE 20Gm/30ML SOLN PO SCH ×6 (02:26→22:54)
[2017-10-29] MEDS: HYDROcodone-ACET 10/325MG TAB PO PRN ×3 (03:25→16:28)
[2017-10-29] MEDS: LEVETIRACETAM 500 MG TAB PO SCH ×2 (05:26→14:21)
[2017-10-29] MEDS: LORazepam 2MG/ML-1ML VIAL IV PRN ×4 (05:27→21:52)
[2017-10-29] MEDS: diphenhdrAMINE HCL 50 MG/1 ML VL IV PRN ×3 (05:27→21:56)
[2017-10-29] MEDS: PREGABALIN 25 MG CAP PO SCH ×3 (05:27→21:56)
[2017-10-29] MEDS: Ensure Enlive Chocolate 8oz Bottle PO SCH (08:00)
[2017-10-29 09:24] VITALS: BP 147/103
[2017-10-29] MEDS: POTASSIUM CHL 10 Meq TABLET PO SCH (09:56)
[2017-10-29] MEDS: METHADONE HCL 10 MG TAB PO SCH ×2 (09:56→23:47)
[2017-10-29] MEDS: PANTOPRAZOLE 40 MG/10 ML VIAL IV SCH ×2 (09:57→21:52)
[2017-10-29] MEDS: predniSONE 5 MG TAB PO SCH (09:57)
[2017-10-29] MEDS: OLANZapine 5 MG TAB PO SCH ×2 (09:57→21:56)
[2017-10-29] MEDS: SODIUM CHLORIDE 1 GM TAB PO SCH ×2 (09:57→22:34)
[2017-10-29 10:58] LABS: Basophils # (auto) 0 uL; Basophils % (auto) 0.7 % (0.0-2.0); Eosinophils # (auto) 0.1 uL; Hematocrit 27.4 % (36.0-46.0); Hemoglobin 9.1 g/dL (12.2-16.2); Lymphocytes # (auto) 2.6 uL; Lymphocytes % (auto) 45.4 % (10.0-50.0); Mean Corpuscular Hgb Conc. 33.4 g/dL (32.0-36.0); Mean Corpuscular Volume 95.8 fL (80.0-100.0); Monocytes # (auto) 0.6 uL; Monocytes % (auto) 10.4 % (0.0-12.0); Neutrophils # (auto) 2.4 uL; Neutrophils % (auto) 41.5 % (37.0-80.0); Nucleated Red Blood Cells % 0.1 %; Platelet Count (auto) 383 10^3/uL (140-450); Red Blood Cells 2.86 10^6/uL (4.0-5.20); Red Cell Distribution Width 16.4 % (11.8-14.3); White Blood Cell 5.8 10^3/uL (4.4-10.8)
[2017-10-29 11:38] LABS: BUN/Creatinine Ratio 10.2; Calcium 8.3 mg/dL (8.5-10.1); Phosphorus 3.4 mg/dL (2.5-4.90); Potassium 4.1 mmol/L (3.5-5.1); Uric Acid 3.5 mg/dL (2.6-6.0)
[2017-10-29 13:24] VITALS: BP 141/99
[2017-10-29] MEDS ORDERED: METHADONE HCL 10 MG TAB PO ONE (16:15)
[2017-10-29] MEDS: ONDANSETRON HCL 4 MG/2 ML VIAL IV PRN (16:38)
[2017-10-29 17:14] VITALS: BP 147/97
[2017-10-29 21:47] VITALS: BP 132/92
[2017-10-29] MEDS: LEVETIRACETAM 500 MG/5ML ORAL SOLN UD PO SCH (22:35)
[2017-10-29] MEDS: TEMAZEPAM 15 MG CAP PO PRN (22:48)
[2017-10-30] MEDS: LACTULOSE 20Gm/30ML SOLN PO SCH ×4 (02:32→14:07)
[2017-10-30] MEDS: HYDROcodone-ACET 10/325MG TAB PO PRN ×3 (02:35→17:52)
[2017-10-30 05:40] VITALS: BP 136/90
[2017-10-30] MEDS: diphenhdrAMINE HCL 50 MG/1 ML VL IV PRN ×2 (06:05→14:07)
[2017-10-30] MEDS: LORazepam 2MG/ML-1ML VIAL IV PRN ×4 (06:11→21:40)
[2017-10-30] MEDS: PREGABALIN 25 MG CAP PO SCH ×3 (06:12→21:32)
[2017-10-30] MEDS: LEVETIRACETAM 500 MG/5ML ORAL SOLN UD PO SCH ×3 (06:12→21:50)
[2017-10-30] MEDS: Ensure Enlive Chocolate 8oz Bottle PO SCH ×2 (08:00→18:00)
[2017-10-30 08:30] VITALS: BP 147/98
[2017-10-30] MEDS ORDERED: METHADONE HCL 10 MG TAB PO SCH (10:00)
[2017-10-30] MEDS: predniSONE 5 MG TAB PO SCH (10:10)
[2017-10-30] MEDS: METHADONE HCL 10 MG TAB PO SCH ×2 (10:10→21:31)
[2017-10-30] MEDS: POTASSIUM CHL 10 Meq TABLET PO SCH (10:10)
[2017-10-30] MEDS: OLANZapine 5 MG TAB PO SCH ×2 (10:10→21:31)
[2017-10-30] MEDS: SODIUM CHLORIDE 1 GM TAB PO SCH ×2 (10:10→21:32)
[2017-10-30] MEDS: PANTOPRAZOLE 40 MG/10 ML VIAL IV SCH (10:16)
[2017-10-30] MEDS: ONDANSETRON HCL 4 MG/2 ML VIAL IV PRN (12:03)
[2017-10-30 13:00] VITALS: BP 151/89
[2017-10-30 13:37] LABS: Basophils # (auto) 0 uL; Basophils % (auto) 0.4 % (0.0-2.0); Eosinophils # (auto) 0.1 uL; Eosinophils % (auto) 1.4 % (0.0-7.0); Hematocrit 26.9 % (36.0-46.0); Hemoglobin 9.1 g/dL (12.2-16.2); Lymphocytes # (auto) 1.4 uL; Lymphocytes % (auto) 18.4 % (10.0-50.0); Mean Corpuscular Hemoglobin 32.8 pg (28.0-32.0); Mean Corpuscular Volume 96.6 fL (80.0-100.0); Monocytes # (auto) 0.4 uL; Neutrophils # (auto) 5.6 uL; Neutrophils % (auto) 74.8 % (37.0-80.0); Nucleated Red Blood Cells % 0.1 %; Platelet Count (auto) 380 10^3/uL (140-450); Red Blood Cells 2.79 10^6/uL (4.0-5.20); Red Cell Distribution Width 16.3 % (11.8-14.3); White Blood Cell 7.5 10^3/uL (4.4-10.8)
[2017-10-30 14:14] LABS: BUN/Creatinine Ratio 9.7; Calcium 8.3 mg/dL (8.5-10.1); Potassium 4.4 mmol/L (3.5-5.1)
[2017-10-30] MEDS ORDERED: OLAN5TAB30 PO ×2 (16:10)
[2017-10-30 17:30] VITALS: BP 150/92
[2017-10-30] MEDS: TEMAZEPAM 15 MG CAP PO PRN (21:51)
[2017-10-30 22:00] VITALS: BP 148/97
[2017-10-30] MEDS ORDERED: diphenhdrAMINE HCL 25 MG CAP PO ONE (22:15)
[2017-10-31 05:00] VITALS: BP 111/69
[2017-10-31] MEDS: LORazepam 0.5 MG TAB PO PRN ×3 (05:00→22:20)
[2017-10-31] MEDS: HYDROcodone-ACET 10/325MG TAB PO PRN ×4 (05:00→20:48)
[2017-10-31] MEDS: PREGABALIN 25 MG CAP PO SCH ×3 (06:31→22:19)
[2017-10-31] MEDS: LEVETIRACETAM 500 MG/5ML ORAL SOLN UD PO SCH ×3 (06:31→22:19)
[2017-10-31 08:00] VITALS: BP 116/77
[2017-10-31] MEDS: Ensure Enlive Chocolate 8oz Bottle PO SCH ×2 (08:00→17:13)
[2017-10-31] MEDS: METHADONE HCL 10 MG TAB PO SCH ×2 (10:02→22:20)
[2017-10-31] MEDS: predniSONE 5 MG TAB PO SCH (10:03)
[2017-10-31] MEDS: PANTOPRAZOLE 40 MG TAB PO SCH (10:03)
[2017-10-31] MEDS: OLANZapine 5 MG TAB PO SCH ×2 (10:03→22:20)
[2017-10-31] MEDS: POTASSIUM CHL 10 Meq TABLET PO SCH (10:03)
[2017-10-31] MEDS: SODIUM CHLORIDE 1 GM TAB PO SCH ×2 (11:28→22:19)
[2017-10-31] MEDS: LACTULOSE 20Gm/30ML SOLN PO PRN ×2 (11:28→22:32)
[2017-10-31] MEDS: diphenhdrAMINE HCL 25 MG CAP PO PRN ×2 (14:07→22:21)
[2017-10-31 22:00] VITALS: BP 147/94
[2017-11-01] VITALS (7 sets, daily range): BP systolic 122–138; BP diastolic 74–97
[2017-11-01] MEDS: TEMAZEPAM 15 MG CAP PO PRN ×2 (01:50→20:56)
[2017-11-01] MEDS: HYDROcodone-ACET 10/325MG TAB PO PRN ×3 (04:56→20:54)
[2017-11-01] MEDS: PREGABALIN 25 MG CAP PO SCH ×3 (06:18→20:56)
[2017-11-01] MEDS: LEVETIRACETAM 500 MG/5ML ORAL SOLN UD PO SCH ×3 (06:18→21:09)
[2017-11-01] MEDS: LORazepam 0.5 MG TAB PO PRN ×2 (06:19→12:24)
[2017-11-01] MEDS: LACTULOSE 20Gm/30ML SOLN PO PRN ×3 (06:19→21:41)
[2017-11-01 07:19] LABS: BUN/Creatinine Ratio 11.3; Calcium 8.1 mg/dL (8.5-10.1); Potassium 3.7 mmol/L (3.5-5.1)
[2017-11-01] MEDS: SODIUM CHLORIDE 1 GM TAB PO SCH ×2 (10:06→21:26)
[2017-11-01] MEDS: PANTOPRAZOLE 40 MG TAB PO SCH (10:06)
[2017-11-01] MEDS: OLANZapine 5 MG TAB PO SCH ×2 (10:06→20:55)
[2017-11-01] MEDS: POTASSIUM CHL 10 Meq TABLET PO SCH (10:06)
[2017-11-01] MEDS: METHADONE HCL 10 MG TAB PO SCH ×2 (10:07→20:55)
[2017-11-01] MEDS: Ensure Enlive Chocolate 8oz Bottle PO SCH ×2 (10:11→18:06)
[2017-11-01] MEDS: diphenhdrAMINE HCL 25 MG CAP PO PRN (12:25)
[2017-11-01] MEDS: ONDANSETRON ODT 4 MG TAB PO PRN (16:52)
[2017-11-02] MEDS: LORazepam 0.5 MG TAB PO PRN ×3 (01:13→17:42)
[2017-11-02] MEDS: HYDROcodone-ACET 10/325MG TAB PO PRN ×6 (01:14→21:56)
[2017-11-02 05:10] VITALS: BP 138/60
[2017-11-02] MEDS: PREGABALIN 25 MG CAP PO SCH ×3 (05:18→20:52)
[2017-11-02] MEDS: LEVETIRACETAM 500 MG/5ML ORAL SOLN UD PO SCH ×3 (06:05→20:51)
[2017-11-02 08:00] VITALS: BP 136/63
[2017-11-02] MEDS: Ensure Enlive Chocolate 8oz Bottle PO SCH ×2 (08:00→17:53)
[2017-11-02 09:00] VITALS: BP 132/64
[2017-11-02 09:29] LABS: BUN/Creatinine Ratio 9.4; Calcium 8.4 mg/dL (8.5-10.1); Potassium 4.2 mmol/L (3.5-5.1)
[2017-11-02] MEDS: POTASSIUM CHL 10 Meq TABLET PO SCH (09:39)
[2017-11-02] MEDS: METHADONE HCL 10 MG TAB PO SCH ×2 (09:40→20:52)
[2017-11-02] MEDS: PANTOPRAZOLE 40 MG TAB PO SCH (09:40)
[2017-11-02] MEDS: OLANZapine 5 MG TAB PO SCH (09:41)
[2017-11-02] MEDS: LACTULOSE 20Gm/30ML SOLN PO PRN ×2 (09:58→20:53)
[2017-11-02] MEDS: SODIUM CHLORIDE 1 GM TAB PO SCH ×2 (09:58→20:52)
[2017-11-02 11:47] VITALS: BP 145/78
[2017-11-02] MEDS: diphenhdrAMINE HCL 25 MG CAP PO PRN (20:53)
[2017-11-02] MEDS: TEMAZEPAM 15 MG CAP PO PRN (20:53)
[2017-11-02 22:00] VITALS: BP 133/90
[2017-11-03] MEDS: LORazepam 0.5 MG TAB PO PRN ×3 (01:57→17:59)
[2017-11-03] MEDS: HYDROcodone-ACET 10/325MG TAB PO PRN ×5 (01:57→21:30)
[2017-11-03 05:00] VITALS: BP 157/79
[2017-11-03] MEDS: PREGABALIN 25 MG CAP PO SCH ×3 (05:59→21:29)
[2017-11-03] MEDS: LEVETIRACETAM 500 MG/5ML ORAL SOLN UD PO SCH ×3 (06:00→21:29)
[2017-11-03] MEDS: LACTULOSE 20Gm/30ML SOLN PO PRN ×3 (06:00→21:31)
[2017-11-03 07:20] LABS: Anion Gap 7 (5-15); BUN/Creatinine Ratio 8.1; Blood Urea Nitrogen 5 mg/dL (7-18); Carbon Dioxide 29 mmol/L (21-32); Chloride 90 mmol/L (98-107); GFR African American 139 mL/min; GFR Non-African American 114 mL/min; Glucose 82 mg/dL (74-106); Potassium 4.1 mmol/L (3.5-5.1); Sodium 126 mmol/L (136-145)
[2017-11-03] MEDS: Ensure Enlive Chocolate 8oz Bottle PO SCH ×2 (08:00→18:00)
[2017-11-03] MEDS: POTASSIUM CHL 10 Meq TABLET PO SCH (09:59)
[2017-11-03] MEDS: PANTOPRAZOLE 40 MG TAB PO SCH (09:59)
[2017-11-03] MEDS: METHADONE HCL 10 MG TAB PO SCH ×2 (10:00→21:29)
[2017-11-03] MEDS: SODIUM CHLORIDE 1 GM TAB PO SCH ×2 (10:00→21:28)
[2017-11-03 18:09] VITALS: BP 156/98
[2017-11-03] MEDS: TEMAZEPAM 15 MG CAP PO PRN (21:30)
[2017-11-03] MEDS: diphenhdrAMINE HCL 25 MG CAP PO PRN (21:30)
[2017-11-03 22:00] VITALS: BP 132/85
[2017-11-04] MEDS: HYDROcodone-ACET 10/325MG TAB PO PRN ×5 (02:11→20:27)
[2017-11-04] MEDS: LORazepam 0.5 MG TAB PO PRN ×3 (02:12→20:27)
[2017-11-04 05:00] VITALS: BP 163/101
[2017-11-04] MEDS: LEVETIRACETAM 500 MG/5ML ORAL SOLN UD PO SCH ×3 (06:11→20:25)
[2017-11-04] MEDS: LACTULOSE 20Gm/30ML SOLN PO PRN ×3 (06:12→19:07)
[2017-11-04] MEDS: PREGABALIN 25 MG CAP PO SCH ×3 (06:12→20:26)
[2017-11-04 06:43] LABS: Calcium 8.3 mg/dL (8.5-10.1); Potassium 3.8 mmol/L (3.5-5.1)
[2017-11-04] MEDS: POTASSIUM CHL 10 Meq TABLET PO SCH (08:55)
[2017-11-04] MEDS: PANTOPRAZOLE 40 MG TAB PO SCH (08:56)
[2017-11-04] MEDS: SODIUM CHLORIDE 1 GM TAB PO SCH ×2 (08:56→21:01)
[2017-11-04 09:07] VITALS: BP 130/88
[2017-11-04] MEDS: METHADONE HCL 10 MG TAB PO SCH ×2 (10:09→20:25)
[2017-11-04] MEDS: OLANZapine 5 MG TAB PO SCH ×2 (11:38→20:26)
[2017-11-04 12:38] VITALS: BP 136/86
[2017-11-04 16:41] VITALS: BP 132/80
[2017-11-04 16:44] LABS: Basophils # (auto) 0 uL; Basophils % (auto) 0.4 % (0.0-2.0); Eosinophils # (auto) 0.1 uL; Eosinophils % (auto) 3.4 % (0.0-7.0); Hematocrit 27.5 % (36.0-46.0); Hemoglobin 9.5 g/dL (12.2-16.2); Lymphocytes # (auto) 1.7 uL; Lymphocytes % (auto) 39.7 % (10.0-50.0); Mean Corpuscular Hgb Conc. 34.5 g/dL (32.0-36.0); Mean Corpuscular Volume 95.4 fL (80.0-100.0); Monocytes # (auto) 0.6 uL; Monocytes % (auto) 12.5 % (0.0-12.0); Neutrophils # (auto) 1.9 uL; Nucleated Red Blood Cells % 0.1 %; Platelet Count (auto) 381 10^3/uL (140-450); Red Blood Cells 2.88 10^6/uL (4.0-5.20); Red Cell Distribution Width 15.4 % (11.8-14.3); White Blood Cell 4.4 10^3/uL (4.4-10.8)
[2017-11-04 17:04] LABS: Albumin 3.6 g/dL (3.4-5.0); BUN/Creatinine Ratio 4.5; Bilirubin, Total 0.2 mg/dL (0.2-1.0); Calcium 8.1 mg/dL (8.5-10.1); Potassium 3.9 mmol/L (3.5-5.1); Total Protein 7.2 g/dL (6.4-8.2)
[2017-11-04] MEDS: TEMAZEPAM 15 MG CAP PO PRN (20:27)
[2017-11-04] MEDS: diphenhdrAMINE HCL 25 MG CAP PO PRN ×2 (20:29→21:02)
[2017-11-05] MEDS: LACTULOSE 20Gm/30ML SOLN PO PRN ×2 (01:47→11:00)
[2017-11-05] MEDS: HYDROcodone-ACET 10/325MG TAB PO PRN ×5 (01:47→21:19)
[2017-11-05 05:30] VITALS: BP 143/87
[2017-11-05] MEDS: LORazepam 0.5 MG TAB PO PRN ×3 (05:53→22:49)
[2017-11-05] MEDS: PREGABALIN 25 MG CAP PO SCH ×3 (05:53→22:19)
[2017-11-05] MEDS: LEVETIRACETAM 500 MG/5ML ORAL SOLN UD PO SCH ×3 (05:54→22:22)
[2017-11-05 08:00] VITALS: BP 122/82
[2017-11-05 09:00] VITALS: BP 146/90
[2017-11-05] MEDS: OLANZapine 5 MG TAB PO SCH ×2 (09:33→22:19)
[2017-11-05] MEDS: METHADONE HCL 10 MG TAB PO SCH ×2 (09:33→22:17)
[2017-11-05] MEDS: POTASSIUM CHL 10 Meq TABLET PO SCH (09:33)
[2017-11-05] MEDS: PANTOPRAZOLE 40 MG TAB PO SCH (09:34)
[2017-11-05] MEDS: SODIUM CHLORIDE 1 GM TAB PO SCH ×2 (09:34→22:18)
[2017-11-05 10:13] LABS: BUN/Creatinine Ratio 9.8; Calcium 7.2 mg/dL (8.5-10.1); Potassium 3.7 mmol/L (3.5-5.1)
[2017-11-05 12:18] VITALS: BP 144/86
[2017-11-05 17:00] VITALS: BP 139/99
[2017-11-05] MEDS: ONDANSETRON ODT 4 MG TAB PO PRN (20:30)
[2017-11-05 22:00] VITALS: BP 142/99
[2017-11-05] MEDS: TEMAZEPAM 15 MG CAP PO PRN (22:20)
[2017-11-05] MEDS: diphenhdrAMINE HCL 25 MG CAP PO PRN (22:20)
[2017-11-06] MEDS: HYDROcodone-ACET 10/325MG TAB PO PRN ×5 (01:31→20:51)
[2017-11-06] MEDS: LEVETIRACETAM 500 MG/5ML ORAL SOLN UD PO SCH ×3 (05:31→22:08)
[2017-11-06] MEDS: PREGABALIN 25 MG CAP PO SCH ×3 (05:31→22:09)
[2017-11-06] MEDS: LORazepam 0.5 MG TAB PO PRN ×3 (06:55→23:03)
[2017-11-06 07:56] LABS: BUN/Creatinine Ratio 10.3; Calcium 8.1 mg/dL (8.5-10.1); Potassium 3.9 mmol/L (3.5-5.1)
[2017-11-06 09:00] VITALS: BP 144/89
[2017-11-06] MEDS: METHADONE HCL 10 MG TAB PO SCH ×2 (09:47→22:11)
[2017-11-06] MEDS: POTASSIUM CHL 10 Meq TABLET PO SCH (09:47)
[2017-11-06] MEDS: PANTOPRAZOLE 40 MG TAB PO SCH (09:48)
[2017-11-06] MEDS: OLANZapine 5 MG TAB PO SCH ×3 (09:48→22:25)
[2017-11-06] MEDS: LACTULOSE 20Gm/30ML SOLN PO PRN ×3 (09:49→22:11)
[2017-11-06] MEDS: SODIUM CHLORIDE 1 GM TAB PO SCH ×2 (09:50→22:09)
[2017-11-06 13:00] VITALS: BP 132/76
[2017-11-06] MEDS: ONDANSETRON ODT 4 MG TAB PO PRN (15:58)
[2017-11-06 17:54] VITALS: BP 147/90
[2017-11-06 21:23] VITALS: BP 135/82
[2017-11-06] MEDS: diphenhdrAMINE HCL 25 MG CAP PO PRN (22:08)
[2017-11-06] MEDS: TEMAZEPAM 15 MG CAP PO PRN (22:08)
[2017-11-07] MEDS: HYDROcodone-ACET 10/325MG TAB PO PRN ×4 (04:01→22:25)
[2017-11-07] MEDS: PREGABALIN 25 MG CAP PO SCH ×3 (06:24→21:43)
[2017-11-07] MEDS: LEVETIRACETAM 500 MG/5ML ORAL SOLN UD PO SCH ×3 (06:24→21:43)
[2017-11-07] MEDS: LORazepam 0.5 MG TAB PO PRN ×3 (06:29→22:24)
[2017-11-07 09:24] VITALS: BP 139/83
[2017-11-07] MEDS: SODIUM CHLORIDE 1 GM TAB PO SCH ×2 (09:32→21:42)
[2017-11-07] MEDS: OLANZapine 5 MG TAB PO SCH ×2 (09:32→21:46)
[2017-11-07] MEDS: PANTOPRAZOLE 40 MG TAB PO SCH (09:32)
[2017-11-07] MEDS: METHADONE HCL 10 MG TAB PO SCH ×2 (09:32→21:43)
[2017-11-07] MEDS: POTASSIUM CHL 10 Meq TABLET PO SCH (09:32)
[2017-11-07 13:00] VITALS: BP 121/67
[2017-11-07] MEDS: LACTULOSE 20Gm/30ML SOLN PO PRN ×2 (14:24→22:24)
[2017-11-07 17:08] VITALS: BP 136/89
[2017-11-07] MEDS: diphenhdrAMINE HCL 25 MG CAP PO PRN (21:44)
[2017-11-07] MEDS: TEMAZEPAM 15 MG CAP PO PRN (21:44)
[2017-11-07 22:00] VITALS: BP 156/92
[2017-11-08] MEDS: HYDROcodone-ACET 10/325MG TAB PO PRN ×6 (02:27→20:17)
[2017-11-08 05:15] VITALS: BP 151/91
[2017-11-08 05:17] VITALS: BP 150/91
[2017-11-08] MEDS: LORazepam 0.5 MG TAB PO PRN ×4 (06:14→23:29)
[2017-11-08] MEDS: PREGABALIN 25 MG CAP PO SCH ×3 (06:14→22:01)
[2017-11-08] MEDS: LEVETIRACETAM 500 MG/5ML ORAL SOLN UD PO SCH ×3 (06:14→22:03)
[2017-11-08 08:00] VITALS: BP 157/89
[2017-11-08 09:00] VITALS: BP 157/89
[2017-11-08] MEDS: SODIUM CHLORIDE 1 GM TAB PO SCH ×2 (10:26→22:02)
[2017-11-08] MEDS: POTASSIUM CHL 10 Meq TABLET PO SCH (10:26)
[2017-11-08] MEDS: METHADONE HCL 10 MG TAB PO SCH ×2 (10:26→22:01)
[2017-11-08] MEDS: OLANZapine 5 MG TAB PO SCH ×2 (10:27→22:02)
[2017-11-08] MEDS: PANTOPRAZOLE 40 MG TAB PO SCH (10:27)
[2017-11-08] MEDS: ONDANSETRON ODT 4 MG TAB PO PRN (10:27)
[2017-11-08 21:46] VITALS: BP 147/92
[2017-11-08] MEDS: TEMAZEPAM 15 MG CAP PO PRN (22:03)
[2017-11-08] MEDS: diphenhdrAMINE HCL 25 MG CAP PO PRN (22:03)
[2017-11-08] MEDS: LACTULOSE 20Gm/30ML SOLN PO PRN (22:03)
[2017-11-09] MEDS: HYDROcodone-ACET 10/325MG TAB PO PRN ×5 (00:21→22:09)
[2017-11-09] MEDS: PREGABALIN 25 MG CAP PO SCH ×3 (06:12→22:07)
[2017-11-09] MEDS: LEVETIRACETAM 500 MG/5ML ORAL SOLN UD PO SCH ×3 (06:13→22:10)
[2017-11-09 06:55] LABS: Calcium 8.1 mg/dL (8.5-10.1); Potassium 4.1 mmol/L (3.5-5.1)
[2017-11-09 07:37] VITALS: BP 114/85
[2017-11-09] MEDS: SODIUM CHLORIDE 1 GM TAB PO SCH ×2 (10:05→22:09)
[2017-11-09] MEDS: PANTOPRAZOLE 40 MG TAB PO SCH (10:09)
[2017-11-09] MEDS: POTASSIUM CHL 10 Meq TABLET PO SCH (10:10)
[2017-11-09] MEDS: OLANZapine 5 MG TAB PO SCH ×2 (10:11→22:08)
[2017-11-09] MEDS: METHADONE HCL 10 MG TAB PO SCH ×2 (10:12→22:08)
[2017-11-09] MEDS: LACTULOSE 20Gm/30ML SOLN PO PRN ×2 (10:20→18:34)
[2017-11-09] MEDS: LORazepam 0.5 MG TAB PO PRN ×2 (10:21→18:34)
[2017-11-09] MEDS: LORazepam 2MG/ML-1ML VIAL IV PRN (14:40)
[2017-11-09 20:00] VITALS: BP 147/92
[2017-11-09 22:01] VITALS: BP 141/91
[2017-11-09] MEDS: TEMAZEPAM 15 MG CAP PO PRN (22:09)
[2017-11-09] MEDS: diphenhdrAMINE HCL 25 MG CAP PO PRN (22:09)
[2017-11-10] MEDS: HYDROcodone-ACET 10/325MG TAB PO PRN ×5 (02:30→22:56)
[2017-11-10] MEDS: LORazepam 0.5 MG TAB PO PRN ×3 (02:35→18:33)
[2017-11-10] MEDS: PREGABALIN 25 MG CAP PO SCH ×3 (06:11→21:48)
[2017-11-10] MEDS: LEVETIRACETAM 500 MG/5ML ORAL SOLN UD PO SCH ×3 (06:12→21:51)
[2017-11-10] MEDS: LACTULOSE 20Gm/30ML SOLN PO PRN ×3 (06:19→22:56)
[2017-11-10 08:00] VITALS: BP_SYST 111; BP_SYST 128; BP_DIAS 58; BP_DIAS 95
[2017-11-10] MEDS: PANTOPRAZOLE 40 MG TAB PO SCH (09:20)
[2017-11-10] MEDS: METHADONE HCL 10 MG TAB PO SCH ×2 (09:21→21:49)
[2017-11-10] MEDS: SODIUM CHLORIDE 1 GM TAB PO SCH ×2 (09:23→21:51)
[2017-11-10] MEDS: POTASSIUM CHL 10 Meq TABLET PO SCH (09:24)
[2017-11-10] MEDS: OLANZapine 5 MG TAB PO SCH ×2 (09:25→21:51)
[2017-11-10 10:10] LABS: Calcium 8.2 mg/dL (8.5-10.1); Potassium 3.9 mmol/L (3.5-5.1)
[2017-11-10 10:12] LABS: BUN/Creatinine Ratio 10.6
[2017-11-10] MEDS: ONDANSETRON ODT 4 MG TAB PO PRN (20:20)
[2017-11-10] MEDS: TEMAZEPAM 15 MG CAP PO PRN (21:49)
[2017-11-10] MEDS: diphenhdrAMINE HCL 25 MG CAP PO PRN (21:50)
[2017-11-10 22:00] VITALS: BP 136/91
[2017-11-11] MEDS: LORazepam 0.5 MG TAB PO PRN ×3 (03:16→18:44)
[2017-11-11] MEDS: LORazepam 2MG/ML-1ML VIAL IV PRN (03:22)
[2017-11-11] MEDS: HYDROcodone-ACET 10/325MG TAB PO PRN ×5 (03:22→20:39)
[2017-11-11] MEDS: PREGABALIN 25 MG CAP PO SCH ×3 (05:46→21:13)
[2017-11-11] MEDS: LEVETIRACETAM 500 MG/5ML ORAL SOLN UD PO SCH ×3 (05:46→21:15)
[2017-11-11 07:28] LABS: BUN/Creatinine Ratio 9.1; Calcium 8.6 mg/dL (8.5-10.1)
[2017-11-11] MEDS: POTASSIUM CHL 10 Meq TABLET PO SCH (10:57)
[2017-11-11] MEDS: OLANZapine 5 MG TAB PO SCH ×2 (10:57→21:13)
[2017-11-11] MEDS: PANTOPRAZOLE 40 MG TAB PO SCH (10:57)
[2017-11-11] MEDS: METHADONE HCL 10 MG TAB PO SCH ×2 (10:58→21:14)
[2017-11-11] MEDS: LACTULOSE 20Gm/30ML SOLN PO PRN ×2 (11:02→21:13)
[2017-11-11] MEDS: SODIUM CHLORIDE 1 GM TAB PO SCH ×2 (11:05→21:15)
[2017-11-11] MEDS: TEMAZEPAM 15 MG CAP PO PRN (21:14)
[2017-11-11] MEDS: diphenhdrAMINE HCL 25 MG CAP PO PRN (21:14)
[2017-11-12] MEDS: HYDROcodone-ACET 10/325MG TAB PO PRN ×5 (02:30→22:08)
[2017-11-12] MEDS: LORazepam 0.5 MG TAB PO PRN ×3 (02:45→18:45)
[2017-11-12] MEDS: LEVETIRACETAM 500 MG/5ML ORAL SOLN UD PO SCH ×3 (05:49→21:08)
[2017-11-12] MEDS: PREGABALIN 25 MG CAP PO SCH ×3 (05:49→21:08)
[2017-11-12] MEDS: SODIUM CHLORIDE 1 GM TAB PO SCH ×2 (10:42→21:08)
[2017-11-12] MEDS: POTASSIUM CHL 10 Meq TABLET PO SCH (10:43)
[2017-11-12] MEDS: PANTOPRAZOLE 40 MG TAB PO SCH (10:45)
[2017-11-12] MEDS: METHADONE HCL 10 MG TAB PO SCH ×2 (10:45→21:08)
[2017-11-12] MEDS: OLANZapine 5 MG TAB PO SCH ×2 (10:46→21:08)
[2017-11-12] MEDS: LACTULOSE 20Gm/30ML SOLN PO PRN ×3 (10:46→22:01)
[2017-11-12] MEDS: TEMAZEPAM 15 MG CAP PO PRN (21:08)
[2017-11-12] MEDS: diphenhdrAMINE HCL 25 MG CAP PO PRN (21:08)
[2017-11-13] MEDS: LORazepam 0.5 MG TAB PO PRN ×2 (05:11→15:34)
[2017-11-13] MEDS: PREGABALIN 25 MG CAP PO SCH ×3 (05:19→23:44)
[2017-11-13] MEDS: LEVETIRACETAM 500 MG/5ML ORAL SOLN UD PO SCH ×3 (05:19→23:44)
[2017-11-13] MEDS: HYDROcodone-ACET 10/325MG TAB PO PRN ×4 (05:19→21:25)
[2017-11-13 05:56] VITALS: BP 157/89
[2017-11-13] MEDS: METHADONE HCL 10 MG TAB PO SCH ×2 (10:19→23:44)
[2017-11-13] MEDS: PANTOPRAZOLE 40 MG TAB PO SCH (10:19)
[2017-11-13] MEDS: POTASSIUM CHL 10 Meq TABLET PO SCH (10:20)
[2017-11-13] MEDS: OLANZapine 5 MG TAB PO SCH ×2 (10:20→23:45)
[2017-11-13] MEDS: LACTULOSE 20Gm/30ML SOLN PO PRN ×2 (10:29→23:46)
[2017-11-13] MEDS: SODIUM CHLORIDE 1 GM TAB PO SCH ×2 (11:48→23:44)
[2017-11-13 22:00] VITALS: BP 138/61
[2017-11-14] MEDS: TEMAZEPAM 15 MG CAP PO PRN (01:11)
[2017-11-14] MEDS: diphenhdrAMINE HCL 25 MG CAP PO PRN (01:11)
[2017-11-14] MEDS: LORazepam 0.5 MG TAB PO PRN ×2 (01:12→10:25)
[2017-11-14] MEDS: HYDROcodone-ACET 10/325MG TAB PO PRN ×2 (04:45→13:53)
[2017-11-14] MEDS: PREGABALIN 25 MG CAP PO SCH ×2 (06:33→14:00)
[2017-11-14] MEDS: LEVETIRACETAM 500 MG/5ML ORAL SOLN UD PO SCH ×2 (06:37→14:00)
[2017-11-14] MEDS: POTASSIUM CHL 10 Meq TABLET PO SCH (10:23)
[2017-11-14] MEDS: SODIUM CHLORIDE 1 GM TAB PO SCH (10:23)
[2017-11-14] MEDS: METHADONE HCL 10 MG TAB PO SCH (10:24)
[2017-11-14] MEDS: PANTOPRAZOLE 40 MG TAB PO SCH (10:24)
[2017-11-14] MEDS: OLANZapine 5 MG TAB PO SCH (10:25)
[2017-11-14] MEDS ORDERED: OLAN5TAB30 PO (12:40)
[2017-11-14 13:02] VITALS: BP 134/90
== END 2017-11-14 14:40 | disposition home or self-care (01) | DRG 247 ==
LOC: EDBD 14:24 → ER 14:24 → OVERFLOW 14:25 → EAST 22:20
PROVIDERS: ADMIT Nurse Practitioner; ATTEND Internal Medicine
PROC: 0DJ08ZZ Inspection of Upper Intestinal Tract, Via Natural or Artificial Opening Endoscopic (ICD-10-PCS; principal; 2017-10-21 11:48)
DX: K56.7 Ileus, unspecified (principal); E87.0 Hyperosmolality and hypernatremia; R45.851 Suicidal ideations; F11.20 Opioid dependence, uncomplicated; E87.1 Hypo-osmolality and hyponatremia; M32.9 Systemic lupus erythematosus, unspecified; K44.9 Diaphragmatic hernia without obstruction or gangrene; G40.409 Other generalized epilepsy and epileptic syndromes, not intractable, without status epilepticus; G89.4 Chronic pain syndrome; F41.9 Anxiety disorder, unspecified; G58.9 Mononeuropathy, unspecified; R63.1 Polydipsia; D64.9 Anemia, unspecified; K59.00 Constipation, unspecified; Z59.0 Homelessness; F17.200 Nicotine dependence, unspecified, uncomplicated; F29 Unspecified psychosis not due to a substance or known physiological condition; F31.9 Bipolar disorder, unspecified; L02.212 Cutaneous abscess of back [any part, except buttock and flank]; M79.7 Fibromyalgia; Z15.09 Genetic susceptibility to other malignant neoplasm; Z79.899 Other long term (current) drug therapy; Z80.0 Family history of malignant neoplasm of digestive organs; Z80.3 Family history of malignant neoplasm of breast; Z82.49 Family history of ischemic heart disease and other diseases of the circulatory system; Z85.038 Personal history of other malignant neoplasm of large intestine; Z85.830 Personal history of malignant neoplasm of bone; Z86.14 Personal history of Methicillin resistant Staphylococcus aureus infection; Z91.19 Patient's noncompliance with other medical treatment and regimen; Z91.410 Personal history of adult physical and sexual abuse; Z92.21 Personal history of antineoplastic chemotherapy; Z88.0 Allergy status to penicillin; Z88.7 Allergy status to serum and vaccine; Z88.8 Allergy status to other drugs, medicaments and biological substances; Z91.041 Radiographic dye allergy status; Z91.040 Latex allergy status
CPT/HCPCS: 36415; 43235; 71045; 74176; 74250; 80048; 80053; 81001; 81025; 82150; 82533; 82570; 83690; 83735; 83880; 83930; 83935; 84100; 84156; 84300; 84443; 84550; 85025; 85610; 85730; 86850; 86900; 86901; 87040; 87081; 93970; 94761; 96361; 96374; 96375; A4565; A6257; C9113; J2250; J2405; J2704; J3490; Q0162